=== PATIENT | female | born 1980 | race African-American/Black ===

== ENCOUNTER 2017-02-09 08:00 | Emergency (ER) | payer OTHER ==
[~2017-02-09] VITALS: Ht 157.4 cm; Wt 86.2 kg
[~2017-02-09 08:00] MED LIST: ACETAMINOPHEN; AMITIZA8 MCG PO; AMOXICILLIN500 M2 PO; AUGMENTIN 875875 MG PO; BACTRIM DS 8001 TA1 PO; BENTYL10 MG PO; CARAFATE1 G1 PO; CARAFATE1 GM PO; CIPRO500 MG PO; COMPAZINE10 MG PO; DOXYCYCLINE HY100 M3 PO; FLAGYL500 MG PO; FLEXERIL5 MG PO; HYDROCODONE; HYDROCODONE BIT1 T11 PO; KEFLEX500 MG PO; LINZESS PO; MOTRIN600 MG PO; MOTRIN800 MG PO; NAPROSYN500 MG PO; NORCO 325 MG-101 TAB PO; NORTRIPTYLINE H10 MG PO; PEPCID20 MG PO; PERCOCET 325 MG1 TA7 PO; PHENERGAN25 MG R; PRILOSEC20 MG; PRILOSEC20 MG PO; PROTONIX40 MG PO; REGLAN10 MG PO; TRAMADOL HCL50 MG PO; VIBRAMYCIN100 MG PO; VICO10300 PO; VITAMIN D400 I1 PO; ZOFRAN ODT4 MG SL; ZOFRAN4 MG PO
[2017-02-09] MEDS ORDERED: LINZESS145 MC1 PO (08:04)
[2017-02-09] MEDS ORDERED: NEURONTIN300 MG PO (08:04)
[2017-02-09 08:38] LABS: BASO % 0.3 % (0.0-1.0); EOS % 0.1 % (1.0-4.0); HEMATOCRIT 38.1 % (37.0-47.0); HEMOGLOBIN 13.8 g/dl (12.0-16.0); LYMPH # 2.7 10*3/uL (1.3-4.4); LYMPH % 23.7 % (27.0-41.0); MEAN CORPUSCULAR HGB 33.3 pg (27.0-31.0); MEAN CORPUSCULAR HGB CONC 36.2 g/dl (33.0-37.0); MEAN PLATELET VOLUME 10.8 fl (9.6-12.3); MONO # 1.1 10*3/uL (0.1-1.0); MONO % 9.7 % (3.0-9.0); NEUT # 7.5 10*3/uL (2.3-7.9); NEUT % 65.8 % (47.0-73.0); PLATELET COUNT AUTOMATED 305 10*3/uL (130-400); RED BLOOD COUNT 4.14 10*6/uL (4.10-5.10); RED CELL DISTRI WIDTH 11.6 % (0-14.5); WHITE BLOOD COUNT 11.4 10*3/uL (4.8-10.8)
[2017-02-09 08:54] LABS: ALBUMIN 4.1 gm/dl (3.1-4.5); ALKALINE PHOSPHATASE 49 U/L (45-117); BILIRUBIN, TOTAL 0.5 mg/dl (0.2-1.0); BUN 22 mg/dl (7-24); CARBON DIOXIDE 22 mmol/L (21-32); CHLORIDE 99 mmol/L (98-107); EST GLOM FILT AFRICAN AMERICAN > 60 ml/min; GLUCOSE 94 mg/dL (65-99); POTASSIUM 3.1 mmol/L (3.5-5.1); SGOT/AST 15 IU/L (3-35); SGPT/ALT 20 U/L (12-78); SODIUM 134 mmol/L (136-145); TOTAL PROTEIN 8.2 gm/dL (6.4-8.2)
[2017-02-09 08:55] LABS: BILIRUBIN 2+ (NEGATIVE); BLOOD 3+ (NEGATIVE); CLARITY CLOUDY (CLEAR); COLOR YELLOW (YELLOW); GLUCOSE NEGATIVE (NEGATIVE); KETONE 3+ (NEGATIVE); LEUKO ESTERASE NEGATIVE (NEGATIVE); NITRITE NEGATIVE (NEGATIVE); PROTEIN 2+ (NEGATIVE); SPECIFIC GRAVITY 1.025 (1.005-1.030)
[2017-02-09 09:03] LABS: BACTERIA TRACE; EPITHELIAL CELLS 16-20; MUCOUS 4+; URINE AMPHETAMINES < 1000 (1000ng/ml); URINE BARBITURATES < 200 (200ng/ml); URINE COCAINE < 300 (300ng/ml)
[2017-02-09 09:04] LABS: URINE REFLEX COMMENT YES (NO)
[2017-02-09] MEDS ORDERED: PROMETHAZINE25 M1 PO (09:56)
[2017-02-09 17:51] VITALS: BP 145/92
== END 2017-02-09 19:03 | disposition home or self-care (01) ==
LOC: ED 08:00
PROVIDERS: Emergency Medicine
DX: R10.32 Left lower quadrant pain (principal); R11.2 Nausea with vomiting, unspecified; F17.200 Nicotine dependence, unspecified, uncomplicated; Z88.6 Allergy status to analgesic agent; Z90.49 Acquired absence of other specified parts of digestive tract

== ENCOUNTER 2018-09-03 22:42 | Emergency (ER) | payer OTHER ==
[~2018-09-03 22:42] MED LIST changes: +LINZESS145 MC1 PO; +NEURONTIN300 MG PO; +PROMETHAZINE25 M1 PO
[2018-09-03 22:45] VITALS: BP 119/68
[2018-09-04] MEDS ORDERED: NORCO 5-325 TA1 EACH PO (01:07)
== END 2018-09-04 01:22 | disposition home or self-care (01) ==
LOC: ED 22:42
DX: S82.62XA Displaced fracture of lateral malleolus of left fibula, initial encounter for closed fracture (principal); G89.29 Other chronic pain; Z88.6 Allergy status to analgesic agent; Z79.899 Other long term (current) drug therapy; W00.2XXA Other fall from one level to another due to ice and snow, initial encounter; Y93.01 Activity, walking, marching and hiking; Y92.481 Parking lot as the place of occurrence of the external cause; Y99.8 Other external cause status

== ENCOUNTER 2018-12-04 06:10 | Emergency (ER) | payer OTHER ==
[~2018-12-04] VITALS: Ht 160 cm; Wt 56.2 kg
[~2018-12-04 06:10] MED LIST changes: +NORCO 5-325 TA1 EACH PO
[2018-12-04 06:14] VITALS: BP 121/57
== END 2018-12-04 07:20 | disposition left against medical advice (07) ==
LOC: ED 06:10
DX: O60.03 Preterm labor without delivery, third trimester (principal); G89.29 Other chronic pain; Z3A.37 37 weeks gestation of pregnancy; Z88.6 Allergy status to analgesic agent

== ENCOUNTER 2020-05-09 11:40 | Emergency (ER) | payer OTHER ==
[~2020-05-09] VITALS: Ht 157.4 cm; Wt 47.6 kg
[2020-05-09 11:46] VITALS: BP 145/76
[2020-05-09 12:26] LABS: BILIRUBIN NEGATIVE; BLOOD NEGATIVE (NEGATIVE); CLARITY CLOUDY (CLEAR); COLOR DARK YELLOW (YELLOW); GLUCOSE NEGATIVE; KETONE 2+; LEUKO ESTERASE 1+ (NEGATIVE); NITRITE NEGATIVE (NEGATIVE); SPECIFIC GRAVITY > 1.030 (1.001-1.030)
[2020-05-09 12:31] LABS: HEMATOCRIT 41.4 % (37.0-47.0); MEAN CELL VOLUME 94.3 fl (81.0-99.0); MEAN CORPUSCULAR HGB 31.4 pg (27.0-31.0); MEAN CORPUSCULAR HGB CONC 33.3 g/dl (33.0-37.0); MEAN PLATELET VOLUME 10.6 fl (9.6-12.3); PLATELET COUNT AUTOMATED 436 10*3/uL (130-400); RED BLOOD COUNT 4.39 10*6/uL (4.10-5.10); RED CELL DISTRI WIDTH 11.9 % (0-14.5); WHITE BLOOD COUNT 18.3 10*3/uL (4.8-10.8)
[2020-05-09 12:43] LABS: EPITHELIAL CELLS 31-40; URINE AMPHETAMINES < 1000 (1000ng/ml); URINE BARBITURATES < 200 (200ng/ml); URINE BENZODIAZEPINES < 200 (200ng/ml); URINE CANNABINOIDS (THC) > 50 (50ng/ml); URINE COCAINE < 300 (300ng/ml); URINE METHADONE < 300 (300ng/ml); URINE OPIATES > 300 (300ng/ml); WBC 51-100 wbc/hpf (0-5)
[2020-05-09 12:44] LABS: BACTERIA 3+; MUCOUS 2+; URINE PHENCYCLIDINE < 25 (25ng/ml)
[2020-05-09 12:49] LABS: PLATELET SUFFICIENCY HIGH (NORMAL); TOTAL CELLS COUNTED 100 #CELLS
[2020-05-09 12:50] LABS: ALBUMIN 4.1 gm/dl (3.1-4.5); ALKALINE PHOSPHATASE 73 U/L (45-117); BUN 16 mg/dl (7-24); CHLORIDE 103 mmol/L (98-107); LIPASE 36 U/L (73-393); POTASSIUM 3.1 mmol/L (3.5-5.1); SGOT/AST 14 IU/L (3-35); SGPT/ALT 26 U/L (12-78); SODIUM 137 mmol/L (136-145); TOTAL PROTEIN 8.9 gm/dL (6.4-8.2)
[2020-05-09] MEDS ORDERED: CEFUROXIME AXE500 MG PO (17:39)
== END 2020-05-09 17:46 | disposition home or self-care (01) ==
LOC: ED 11:40
PROVIDERS: Physician Assistant
DX: N39.0 Urinary tract infection, site not specified (principal); F17.200 Nicotine dependence, unspecified, uncomplicated; Z88.6 Allergy status to analgesic agent

== ENCOUNTER 2020-05-11 06:29 | Emergency (ER) | payer OTHER ==
[~2020-05-11] VITALS: Ht 157.4 cm; Wt 47.6 kg
[~2020-05-11 06:29] MED LIST changes: +CEFUROXIME AXE500 MG PO
[2020-05-11 06:34] VITALS: BP 134/98
[2020-05-11 07:22] LABS: BILIRUBIN Negative; CLARITY Cloudy (CLEAR); COLOR Dark Yellow (YELLOW); GLUCOSE Negative; KETONE 3+
[2020-05-11 07:23] LABS: BLOOD Negative (NEGATIVE); EPITHELIAL CELLS 16-20; LEUKO ESTERASE 2+ (NEGATIVE); MUCOUS 1+; NITRITE Negative (NEGATIVE); SPECIFIC GRAVITY >= 1.030 (1.001-1.030); WBC 21-30 wbc/hpf (0-5)
[2020-05-11] MEDS ORDERED: FLAGYL500 MG PO (08:10)
[2020-05-11] MEDS ORDERED: VIBRAMYCIN100 MG PO (08:10)
[2020-05-11 08:35] LABS: URINE AMPHETAMINES < 1000 (1000ng/ml); URINE BARBITURATES < 200 (200ng/ml); URINE BENZODIAZEPINES < 200 (200ng/ml); URINE CANNABINOIDS (THC) > 50 (50ng/ml); URINE COCAINE < 300 (300ng/ml); URINE METHADONE < 300 (300ng/ml); URINE OPIATES > 300 (300ng/ml)
[2020-05-11 08:42] LABS: URINE PHENCYCLIDINE < 25 (25ng/ml)
[2020-05-11 09:02] LABS: BASO # 0.1 10*3/uL (0.0-0.1); BASO % 0.6 % (0.0-1.0); EOS % 0.2 % (1.0-4.0); HEMATOCRIT 40.1 % (37.0-47.0); LYMPH # 2.7 10*3/uL (1.3-4.4); LYMPH % 23.4 % (27.0-41.0); MEAN CELL VOLUME 95.2 fl (81.0-99.0); MEAN CORPUSCULAR HGB 31.6 pg (27.0-31.0); MEAN CORPUSCULAR HGB CONC 33.2 g/dl (33.0-37.0); MEAN PLATELET VOLUME 10.5 fl (9.6-12.3); MONO # 0.9 10*3/uL (0.1-1.0); MONO % 7.9 % (3.0-9.0); NEUT # 7.8 10*3/uL (2.3-7.9); NEUT % 67.5 % (47.0-73.0); PLATELET COUNT AUTOMATED 438 10*3/uL (130-400); RED BLOOD COUNT 4.21 10*6/uL (4.10-5.10); RED CELL DISTRI WIDTH 11.8 % (0-14.5); WHITE BLOOD COUNT 11.5 10*3/uL (4.8-10.8)
[2020-05-11 09:16] LABS: ALBUMIN 3.6 gm/dl (3.1-4.5); ALKALINE PHOSPHATASE 61 U/L (45-117); BUN 14 mg/dl (7-24); CHLORIDE 100 mmol/L (98-107); CREATININE 0.59 mg/dL (0.55-1.02); LIPASE 47 U/L (73-393); POTASSIUM 2.9 mmol/L (3.5-5.1); SGOT/AST 9 IU/L (3-35); SGPT/ALT 18 U/L (12-78); SODIUM 136 mmol/L (136-145)
[2020-05-11] MEDS ORDERED: Motrin,Rufen400 MG PO (10:39)
[2020-05-11] MEDS ORDERED: TYLENOL325 M1 PO (10:39)
[2020-05-11] MEDS ORDERED: ZOFRAN4 MG PO (10:39)
[2020-05-11] MEDS ORDERED: K-TAB20 MEQ PO (12:33)
== END 2020-05-11 10:49 | disposition home or self-care (01) ==
LOC: ED 06:29
PROVIDERS: Emergency Medicine; Emergency Medicine Emergency Medical Services
DX: N73.9 Female pelvic inflammatory disease, unspecified (principal); A59.9 Trichomoniasis, unspecified; Z88.8 Allergy status to other drugs, medicaments and biological substances; Z79.899 Other long term (current) drug therapy

== ENCOUNTER 2020-09-14 23:13 | Emergency (ER) | payer OTHER ==
[~2020-09-14] VITALS: Ht 157.4 cm; Wt 45.4 kg
[~2020-09-14 23:13] MED LIST changes: +K-TAB20 MEQ PO; +Motrin,Rufen400 MG PO; +TYLENOL325 M1 PO
[2020-09-15 00:12] LABS: BILIRUBIN Negative (Negative); BLOOD Negative (Negative); CLARITY Cloudy (Clear); COLOR Yellow (Yellow); GLUCOSE Negative (Negative); KETONE 4+ (Negative); LEUKO ESTERASE Trace (Negative); NITRITE Negative (Negative); SPECIFIC GRAVITY >= 1.030 (1.001-1.030)
[2020-09-15 00:15] LABS: BASO # 0.1 10*3/uL (0.0-0.1); BASO % 0.7 % (0.0-1.0); HEMATOCRIT 39.4 % (37.0-47.0); LYMPH # 1.5 10*3/uL (1.3-4.4); LYMPH % 12.1 % (27.0-41.0); MEAN CORPUSCULAR HGB 31.6 pg (27.0-31.0); MEAN CORPUSCULAR HGB CONC 32.2 g/dl (33.0-37.0); MEAN PLATELET VOLUME 11.1 fl (9.6-12.3); MONO # 0.5 10*3/uL (0.1-1.0); MONO % 3.9 % (3.0-9.0); NEUT # 10.1 10*3/uL (2.3-7.9); PLATELET COUNT AUTOMATED 316 10*3/uL (130-400); RED BLOOD COUNT 4.02 10*6/uL (4.10-5.10); RED CELL DISTRI WIDTH 12.5 % (0-14.5); WHITE BLOOD COUNT 12.2 10*3/uL (4.8-10.8)
[2020-09-15 00:24] LABS: URINE AMPHETAMINES < 1000 (1000ng/ml); URINE BARBITURATES < 200 (200ng/ml); URINE BENZODIAZEPINES < 200 (200ng/ml); URINE CANNABINOIDS (THC) > 50 (50ng/ml); URINE COCAINE < 300 (300ng/ml); URINE METHADONE < 300 (300ng/ml); URINE OPIATES < 300 (300ng/ml); URINE PHENCYCLIDINE < 25 (25ng/ml)
[2020-09-15 00:32] LABS: ALBUMIN 3.9 gm/dl (3.1-4.5); ALKALINE PHOSPHATASE 55 U/L (45-117); BUN 10 mg/dl (7-24); CHLORIDE 107 mmol/L (98-107); CREATININE 0.55 mg/dL (0.55-1.02); LIPASE 37 U/L (73-393); POTASSIUM 3.4 mmol/L (3.5-5.1); SGOT/AST 12 IU/L (3-35); SGPT/ALT 17 U/L (12-78); SODIUM 140 mmol/L (136-145); TOTAL PROTEIN 7.5 gm/dL (6.4-8.2)
[2020-09-15 00:35] LABS: BETA-HCG, QUANT < 1.0 mIU/mL (1-3)
[2020-09-15 00:47] LABS: EPITHELIAL CELLS 41-50
[2020-09-15 00:48] LABS: BACTERIA 2+
[2020-09-15 04:18] VITALS: BP 138/82
[2020-09-15] MEDS ORDERED: VIBRAMYCIN100 MG PO (10:08)
[2020-09-15] MEDS ORDERED: ZOFRAN4 MG PO (10:08)
== END 2020-09-15 10:30 | disposition home or self-care (01) ==
LOC: ED 23:13
PROVIDERS: Emergency Medicine
DX: N73.9 Female pelvic inflammatory disease, unspecified (principal); R11.2 Nausea with vomiting, unspecified; K21.9 Gastro-esophageal reflux disease without esophagitis; F17.200 Nicotine dependence, unspecified, uncomplicated; Z88.6 Allergy status to analgesic agent; Z79.2 Long term (current) use of antibiotics; Z79.899 Other long term (current) drug therapy

== ENCOUNTER 2020-09-19 08:18 | Emergency (ER) | payer OTHER ==
[~2020-09-19] VITALS: Ht 162.5 cm; Wt 59.9 kg
[2020-09-19 08:25] VITALS: BP 110/78
[2020-09-19 09:10] LABS: BASO # 0.1 10*3/uL (0.0-0.1); BASO % 0.8 % (0.0-1.0); EOS # 0.1 10*3/uL (0.0-0.4); EOS % 0.9 % (1.0-4.0); HEMATOCRIT 51.3 % (37.0-47.0); LYMPH # 3.4 10*3/uL (1.3-4.4); LYMPH % 30.6 % (27.0-41.0); MEAN CELL VOLUME 94.6 fl (81.0-99.0); MEAN CORPUSCULAR HGB 31.9 pg (27.0-31.0); MEAN CORPUSCULAR HGB CONC 33.7 g/dl (33.0-37.0); MEAN PLATELET VOLUME 11.2 fl (9.6-12.3); MONO % 9.2 % (3.0-9.0); NEUT # 6.5 10*3/uL (2.3-7.9); NEUT % 58.1 % (47.0-73.0); PLATELET COUNT AUTOMATED 370 10*3/uL (130-400); RED BLOOD COUNT 5.42 10*6/uL (4.10-5.10); RED CELL DISTRI WIDTH 12.1 % (0-14.5); WHITE BLOOD COUNT 11.1 10*3/uL (4.8-10.8)
[2020-09-19 09:27] LABS: ALBUMIN 5.2 gm/dl (3.1-4.5); ALKALINE PHOSPHATASE 71 U/L (45-117); BUN 15 mg/dl (7-24); CHLORIDE 103 mmol/L (98-107); CREATININE 0.97 mg/dL (0.55-1.02); LIPASE 170 U/L (73-393); POTASSIUM 3.3 mmol/L (3.5-5.1); SGOT/AST 15 IU/L (3-35); SGPT/ALT 20 U/L (12-78); SODIUM 135 mmol/L (136-145)
[2020-09-19 09:33] LABS: BETA-HCG, QUANT < 1.0 mIU/mL (1-3)
[2020-09-19 09:35] LABS: BILIRUBIN 1+ (Negative); BLOOD Trace-Lysed (Negative); CLARITY Turbid (Clear); COLOR Dark Yellow (Yellow); GLUCOSE Negative (Negative); KETONE Trace (Negative); LEUKO ESTERASE 1+ (Negative); NITRITE Negative (Negative); SPECIFIC GRAVITY >= 1.030 (1.001-1.030)
[2020-09-19 09:45] LABS: BACTERIA 3+; CALCIUM OXALATE CRYSTALS 1+; EPITHELIAL CELLS 41-50; MUCOUS 2+
[2020-09-19] MEDS ORDERED: PERCOCET 5-3251 EACH PO (12:20)
[2020-09-19] MEDS ORDERED: FLAGYL500 MG PO (12:20)
[2020-09-19] MEDS ORDERED: ZOFRAN4 MG PO (12:20)
== END 2020-09-19 13:00 | disposition home or self-care (01) ==
LOC: ED 08:18
PROVIDERS: Emergency Medicine
DX: N73.0 Acute parametritis and pelvic cellulitis (principal); A54.9 Gonococcal infection, unspecified; Z98.51 Tubal ligation status; Z88.6 Allergy status to analgesic agent

== ENCOUNTER 2020-09-20 17:17 | Emergency (ER) | payer OTHER ==
[~2020-09-20] VITALS: Wt 49.9 kg
[~2020-09-20 17:17] MED LIST changes: +PERCOCET 5-3251 EACH PO
[2020-09-20 17:20] VITALS: BP 139/81
[2020-09-20 18:02] LABS: BASO # 0.1 10*3/uL (0.0-0.1); BASO % 0.6 % (0.0-1.0); EOS # 0.1 10*3/uL (0.0-0.4); EOS % 0.5 % (1.0-4.0); HEMATOCRIT 40.2 % (37.0-47.0); LYMPH # 2.8 10*3/uL (1.3-4.4); LYMPH % 21.6 % (27.0-41.0); MEAN CELL VOLUME 95.3 fl (81.0-99.0); MEAN CORPUSCULAR HGB CONC 33.6 g/dl (33.0-37.0); MEAN PLATELET VOLUME 11.1 fl (9.6-12.3); MONO % 7.8 % (3.0-9.0); NEUT # 8.9 10*3/uL (2.3-7.9); NEUT % 69.1 % (47.0-73.0); PLATELET COUNT AUTOMATED 276 10*3/uL (130-400); RED BLOOD COUNT 4.22 10*6/uL (4.10-5.10); RED CELL DISTRI WIDTH 12.1 % (0-14.5); WHITE BLOOD COUNT 12.9 10*3/uL (4.8-10.8)
[2020-09-20 18:15] LABS: BILIRUBIN 1+ (Negative); BLOOD 3+ (Negative); CLARITY Turbid (Clear); COLOR Dark Yellow (Yellow); GLUCOSE Negative (Negative); KETONE Trace (Negative); LEUKO ESTERASE 1+ (Negative); NITRITE Negative (Negative); PH 6.5 (4.5-8.0); SPECIFIC GRAVITY >= 1.030 (1.001-1.030)
[2020-09-20 18:27] LABS: URINE AMPHETAMINES < 1000 (1000ng/ml); URINE BARBITURATES < 200 (200ng/ml); URINE BENZODIAZEPINES < 200 (200ng/ml); URINE CANNABINOIDS (THC) > 50 (50ng/ml); URINE COCAINE < 300 (300ng/ml); URINE METHADONE < 300 (300ng/ml); URINE OPIATES > 300 (300ng/ml); URINE PHENCYCLIDINE < 25 (25ng/ml)
[2020-09-20 18:28] LABS: ALBUMIN 3.9 gm/dl (3.1-4.5); ALKALINE PHOSPHATASE 54 U/L (45-117); BUN 12 mg/dl (7-24); CHLORIDE 107 mmol/L (98-107); CREATININE 0.74 mg/dL (0.55-1.02); SGOT/AST 9 IU/L (3-35); SGPT/ALT 15 U/L (12-78); SODIUM 141 mmol/L (136-145); TOTAL PROTEIN 7.3 gm/dL (6.4-8.2)
[2020-09-20 18:30] LABS: B-hCG (QUALITATIVE) NEGATIVE (NEGATIVE)
[2020-09-20 18:39] LABS: RBC 31-40 rbc/hpf (0-2)
[2020-09-20 18:40] LABS: BACTERIA 1+; EPITHELIAL CELLS 31-40; MUCOUS 3+
== END 2020-09-20 20:10 | disposition short-term general hospital (02) ==
LOC: ED 17:17
PROVIDERS: Emergency Medicine
DX: N73.0 Acute parametritis and pelvic cellulitis (principal); R11.10 Vomiting, unspecified; Z88.6 Allergy status to analgesic agent; Z79.2 Long term (current) use of antibiotics; Z79.899 Other long term (current) drug therapy; Z90.49 Acquired absence of other specified parts of digestive tract; Z98.51 Tubal ligation status